=== PATIENT | female | born 2000 | race Caucasian/White ===

== ENCOUNTER 2024-01-18 18:43 | Emergency (ER) | payer OTHER, SELFPAY ==
--- NOTE | 2024-01-18 18:51 | ED_ITS ---
HPI - General Adult General Chief complaint: Upper Respiratory Infection Stated complaint: Fever / body chills Time Seen by Provider: 01/18/24 18:51 Source: patient Mode of arrival: ambulatory Limitations: no limitations History of Present Illness HPI narrative: 23-year-old female patient presents to [facility] with complaints flu-like symptoms that started at 3:00 a.m. this morning. Patient states she has been having sore throat, body aches and chills. Patient states she did not measure fever but did present to the [facility] with fever today. Patient states she did take some ibuprofen about 11:00 a.m. but states that did not help. Denies any chest pain or shortness of breath. Denies any abdominal pain, nausea, vomiting or diarrhea. Related Data Home Medications Medication Instructions Recorded Confirmed No Home Medications 01/18/24 01/18/24 Allergies Allergy/AdvReac Type Severity Reaction Status Date / Time No Known Allergies Allergy Verified 01/18/24 18:52 Review of Systems Review of Systems: CONSTITUTIONAL: Positive fever body aches and, chills, or sweats. EYES: Denies visual changes, redness, or discharge. ENT: Denies rhinorrhea, congestion, positive sore throat, mom denies otalgia. CARDIOVASCULAR: Denies chest pain, palpitations, or edema. RESPIRATORY: Denies cough or dyspnea. GASTROINTESTINAL: Denies abdominal pain, nausea, vomiting, or diarrhea. GENITOURINARY: Denies dysuria or hematuria. SKIN: Denies rash or itching. MUSCULOSKELETAL: Denies back pain, joint pain, or myalgia. NEUROLOGIC: Denies headache, numbness, or weakness. PSYCHIATRIC: Denies anxiety or depression. PMFSH Comments At the time of my signature I agree with nursing past medical history, surgical, social, and family history. There is no relevant family history pertinent to the presenting complaint. Exam Narrative: GENERAL: Well-appearing, well-nourished, and in no acute distress. HEAD: Normocephalic, atraumatic. EYES: PERRLA and EOMI. ENT: Nares clear, no rhinorrhea or epistaxis. Mucous membranes moist. posterior pharynx with no erythema, tonsillar enlargement, exudates or lesions present. Bilateral TMs are clear no erythema or foreign bodies canal. NECK: Supple. No lymphadenopathy CHEST: Clear to auscultation. No respiratory distress. HEART: Regular rate and rhythm. No murmur heard. Normal peripheral pulses. ABDOMEN: Soft, nontender, nondistended, normal active bowel sounds. EXTREMITIES: Normal range of motion. No edema. SKIN: Warm, dry, no rash. NEURO: No focal deficits. Alert and oriented x3. Course Course Level of Care: Express Care Visit Reevaluation(s) Reevaluation #1: Notify patient she has tested negative on all swabs today. Discussed with her that she continues taking [id number]-[id number] medication for her symptoms, warm salt water gargles and hot tea and honey to help with the throat. Patient verbalized understanding denies any other questions or concerns at this time Date: 01/18/24 Time: 19:28 Vital Signs Vital signs: Vital Signs Temperature 38.1 C H 01/18/24 19:02 Pulse Rate 112 H 01/18/24 19:02 Respiratory Rate 16 01/18/24 19:02 Blood Pressure 114/69 01/18/24 19:02 Pulse Oximetry 100 01/18/24 19:02 Oxygen Delivery Room Air 01/18/24 19:02 Temperature 38.1 C H 01/18/24 19:02 Pulse Rate 112 H 01/18/24 19:02 Respiratory Rate 16 01/18/24 19:02 Blood Pressure 114/69 01/18/24 19:02 Pulse Oximetry 100 01/18/24 19:02 Oxygen Delivery Room Air 01/18/24 19:02 Vital signs reviewed. Medical Decision Making MDM Narrative Medical decision making narrative: Plan of care for patient is to test her today for influenza, COVID and strep. I will reassess her once this has resulted. Differential Diagnosis Differential Diagnosis: Differential diagnosis: Allergic rhinitis, chronic sinusitis, tonsillitis, acute sinusitis, infectious mononucleosis, seasonal influenza, pertussis, diphtheria, meningococcal disease, viral syndrome, viral bronchitis, RSV, COVID- 19 Vital Signs Vital Signs: Vital Signs Temperature 38.1 C H 01/18/24 19:02 Pulse Rate 112 H 01/18/24 19:02 Respiratory Rate 16 01/18/24 19:02 Blood Pressure 114/69 01/18/24 19:02 Pulse Oximetry 100 01/18/24 19:02 Oxygen Delivery Room Air 01/18/24 19:02 Temperature 38.1 C H 01/18/24 19:02 Pulse Rate 112 H 01/18/24 19:02 Respiratory Rate 16 01/18/24 19:02 Blood Pressure 114/69 01/18/24 19:02 Pulse Oximetry 100 01/18/24 19:02 Oxygen Delivery Room Air 01/18/24 19:02 Critical Care Time Critical Care Time Critical Care Time: No Discharge Plan Discharge Clinical Impression: Viral URI Pharyngitis Qualifiers: Pharyngitis/tonsillitis etiology: unspecified etiology Qualified Code(s): J02.9 - Acute pharyngitis, unspecified Patient Disposition: Home, Self-Care Condition: Stable Instructions: Antibiotic Form, Viral Syndrome (ED) Additional Instructions: Viral illness may last between 7-12days; antibiotic is NOT recommended at this time. Recommend antihistamine such as Benadryl at night time and Claritin/Zyrtec/[place] during the day Cough syrup may cause drowsiness; avoid driving or take it at night time. Also, recommend symptomatic treatment includes: rest, fluids, and increase humidity of the air at home. Recommend Acetaminophen or nonsteroidal anti-inflammatory agents (NSAIDs) as directed in the bottle to reduce fever and/pain/headache. Avoid smoking/second-hand smoke. Limit visits to areas with large crowds. Please schedule a follow-up visit with your personal physician for further evaluation and treatment within 3-5days. Including recheck and discussion of your blood pressure. If your symptoms persist, change or worsen significantly before you can contact your personal physician then please, without delay, go to the emergency department for further evaluation. Prescriptions: No Action No Home Medications Follow-up/Referrals: UNKNOWN,DOCTOR [Non-Staff] - Stand Alone Forms: Work/School Release IP Time of Disposition: :26
[2024-01-18 19:02] VITALS: BP 114/69; PULSE 112; RESP 16; TEMP 38.1; O2SAT 100
[2024-01-20 10:04] LABS: EDSTREPNEGPOS1 Negative (Negative)
[2024-01-20 10:04] LABS: EDCOVIDSCREEN Negative (Negative); EDINFLUASCREEN Negative (Negative); EDINFLUBSCREEN Negative (Negative)
== END 2024-01-18 19:27 | disposition home or self-care (01) ==
PROVIDERS: Emergency Provider Nurse Practitioner Family
DX: J06.9 Acute upper respiratory infection, unspecified (principal); J02.9 Acute pharyngitis, unspecified; Z20.822 Contact with and (suspected) exposure to COVID-19
CPT/HCPCS: 87081; 87426; 87635; 87804; 87880; 99203; G0463